=== PATIENT | male | born 1985 | race Caucasian/White ===

== ENCOUNTER 2016-07-30 16:05 | Inpatient (IN) | payer OTHER ==
[~2016-07-30] VITALS: Ht 180.3 cm; Wt 81.6 kg
[~2016-07-30 16:05] MED LIST: CLONIDINE HCL0.1 MG PO; CYCLOBENZAPRINE10 M1 PO; STROVITE ONE C1 EACH PO; TRAZODONE HCL100 M1 PO; VENLAFAXINE HC150 M1 PO; VICODIN 5-3001 EACH PO; XANAX1 M1 PO; ZOLPIDEM TART12.5 M1 PO
--- NOTE | 2016-07-30 16:09 | ED PSYCHIATRIC COMPLAINT ---
History of Present Illness General Chief Complaint: ETOH/Drug Related Complaint Stated Complaint: BIBA FOR OVERDOSE Source: patient, old records, EMS Exam Limitations: clinical condition Vital Signs & Intake/Output Vital Signs & Intake/Output Vital Signs Date Time Temp Pulse Resp B/P Pulse O2 O2 Flow FiO2 Ox Delivery Rate 07/30 2014 97.8 61 12 131/82 95 Room Air 07/30 1610 98.8 64 18 114/57 96 Room Air Allergies Coded Allergies: NO KNOWN ALLERGIES (04/03/13) Reconcile Medications Alprazolam (Xanax) 1 MG TABLET 1 TAB PO TID ANXIETY (Reported) Clonidine HCl 0.1 MG TABLET 1 TAB PO QPM ANXIETY (Reported) Cyclobenzaprine HCl 10 MG TABLET 1 TAB PO QPM MUSCLE SPASMS Hydrocodone/Acetaminophen (Vicodin 5-300 MG Tablet) 1 EACH TABLET 1 TAB PO BID PRN PAIN Mv,Min #10/FA/D3/Alip Acid/Lut (Strovite One Caplet) 1 EACH TABLET 1 TAB PO DAILY SUPPLEMENT (Reported) Trazodone HCl 100 MG TABLET 1-2 TAB PO QPM SLEEP (Reported) Venlafaxine HCl (Venlafaxine HCl ER) 150 MG TAB.ER.24 1 TAB PO DAILY MENTAL HEALTH (Reported) Zolpidem Tartrate (Zolpidem Tartrate ER) 12.5 MG TAB.MPHASE 1 TAB PO QPM PRN SLEEP (Reported) Triage Nurses Notes Reviewed? yes Onset: Abrupt Duration: minute(s): (FEW) Timing: single episode today Severity: severe Associated Symptoms: UNRESPONSIVE/LETHARGIC HPI: This is a 31-year-old male with history of long-standing polysubstance abuse who presents to the ER via EMS from home for chief complaint of being found unresponsive. According to his mother he has been doing well on methadone maintenance. This morning he went to the methadone clinic. When he came home they noticed that he was not behaving at baseline. He told them that he took his methadone as well as 3 mg of Xanax however not in an attempt to harm himself. They told him that they wanted to bring him to the hospital for evaluation which she finally agreed to. He stated that he wanted to go change in the bathroom and then he went to the bedroom and locked himself. The were not on the door without response. He finally opened up the door but was altered and leaning over a box on the ground. He was in and out of consciousness. EMS were called. Police arrived at the scene and were able to arouse him with a sternal rub and he was transported here. Patient upon arrival no known found to have right arm fresh IV track noriega. He admits to using 2 bags of IV heroin. In addition to patient being under a lot of stress secondary to his father being very sick in the ICU he was also arrested yesterday for possible interference of a drug arrest. [facility] was [facility] out from [facility] yesterday by his mother and is due to appear in court on the . (CATHERINE VARGHESE MD) Past History Travel History Traveled to [place] past 21 day No Medical History Any Pertinent Medical History? see below for history Psychiatric: substance abuse Tetanus Vaccine: 04/03/13 Surgical History Surgical History: non-contributory Psychosocial History What is your primary language Tuvaluan ETOH Use: occasional use Illicit Drug Use: heroin Family History Hx Contributory? No (CATHERINE VARGHESE MD) Review of Systems Review of Systems Constitutional: Denies: chills, fever. EENTM: Reports: no symptoms. Respiratory: Denies: cough, short of breath. Cardiovascular: Denies: chest pain, palpitations. GI: Denies: abdominal pain. Genitourinary: Reports: no symptoms. Musculoskeletal: Reports: no symptoms. Skin: Reports: no symptoms. Neurological/Psychological: Reports: anxiety. Hematologic/Endocrine: Denies: bruising, bleeding, polyuria, polydipsia. Immunologic/Allergic: Denies: splenectomy. All Other Systems: Reviewed and Negative (CATHERINE VARGHESE MD) Physical Exam Physical Exam General Appearance: well developed/nourished, lethargic, moderate distress Head: atraumatic Eyes: Bilateral: PERRL, EOMI. Ears, Nose, Throat: normal pharynx, normal ENT inspection, hearing grossly normal Neck: normal inspection, supple Respiratory: normal breath sounds Cardiovascular: regular rate/rhythm Gastrointestinal: soft, non-tender Extremities: normal range of motion Neurological/Psychiatric: AROUSABLE TO VERBAL STIMULI Appearance/Memory/Insight: disheveled, impaired insight Skin: intact, normal color, warm/dry SAD PERSONS Done? unobtained due to conditi (CATHERINE VARGHESE MD) Progress Differential Diagnosis: HEROIN OVERDOSE, METHADONE OVERDOSE, XANAX OVERDOSE, Plan of Care: Orders Procedure Date/time Status Admit to inpatient psych 07/30 2110 Active ED CRISIS PSYCH CONSULT 07/30 1701 Active URINE DRUGS OF ABUSE 07/30 1609 Complete Laboratory Tests 07/30/16 1621: Urine Opiates Screen > 4000.00 H, Methadone Screen > 735 H, Barbiturate Screen < 60, Ur Phencyclidine Scrn 9.90, Amphetamines Screen < 100, U Benzodiazepines Scrn > 800 H, Urine Cocaine Screen < 50, Urine Cannabis Screen 65.80 H Hand-Off Endorsed To: PRABHJOT CINTRON MD Endorsed Time: 1924 (CATHERINE VARGHESE MD) Departure Departure Disposition: STILL A PATIENT Condition: Stable Clinical Impression Primary Impression: Heroin overdose Referrals: BRANDEN MAYEN MD (PCP/Family) Departure Forms: Customer Survey General Discharge Information (CATHERINE VARGHESE MD) Psych Admission Note Psychiatric Admission: I have seen and evaluated YENNIFERCRISTIANADAM. I have also reviewed all the pertinent lab results and diagnostic results. AIMEEADAM Wolfe will be admitted to our inpatient Psychiatric unit for treatment and care. (PRABHJOT CINTRON MD) Critical Care Note Critical Care Note Critical Care Time: 30-74 min (CATHERINE VARGHESE MD)
--- NOTE | 2016-07-30 16:12 | NUR ---
31 YO MALE BIBA FROM HOME. PT WAS FOUND SEMI-RESPONSIVE BY FAMILY, ON EMS ARRIVAL THEY PERFORMED A STERNAL RUB AND PT BECAME MORE ALERT. PT ADMITS TO TAKING (3) 1MG TABS OF XANAX AND 90MG OF METHADONE TODAY. DENIES SI ATTEMPT. DENIES SI/HI AT THIS TIME. PT CALM AND COOPERATIVE. SECUIRTY AT BEDSIDE FOR WANDING. PT DENIES ALCOHOL USE. PT ALERT AND ORIENTED. REG RESP RATE AT THIS TIME,
--- NOTE | 2016-07-30 16:26 | NUR ---
PT SLEEPING AT THIS TIME, REG RESP RATE NOTED. RA SATS 94%-95% WILL CTM
--- NOTE | 2016-07-30 16:27 | NUR ---
URINE SAMPLE SENT TO LAB
--- NOTE | 2016-07-30 16:47 | NUR ---
NARCAN 0.4MG IV IN 50ML NS BAG PB STARTED
--- NOTE | 2016-07-30 17:00 | NUR ---
PT TO CONSULT ROOM TO SPEAK WITH CRISIS
--- NOTE | 2016-07-30 18:26 | NUR ---
PT RESTING ON STRETCHER, RA SATS 96% AT THIS TIME. WILL CTM
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
--- NOTE | 2016-07-30 20:15 | NUR ---
PT LYING ON STRETCHER IN [place] C, CALM AND COOPERATIVE. PT ON MONITOR. AWOKEN FOR VITALS.
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
--- NOTE | 2016-07-30 22:34 | NUR ---
PT MEDICATED WITH NEURONTIN 300MG
--- NOTE | 2016-07-30 22:43 | NUR ---
PT TRANSPORTED TO FLOOR
[2016-07-30 22:59] VITALS: BP 121/71
--- NOTE | 2016-07-30 23:19 | NUR ---
PT ALERT ORIENTED VSS COOPERATIVE WITH CARE INTERVIEW OBTAINED PT. ORIENTED TO SURROUNDINGS. PT DENIES A SUICIDE ATTEMPT. ABRASION NOTED TO RIGHT UPPER EYEBROW FROM A FALL. USED HERION AND MARIJUANA METHADONE LAST TODAY.
[2016-07-31] VITALS (13 sets, daily range): BP systolic 116–141; BP diastolic 56–91
[2016-07-31] MEDS ORDERED: STROVITE ONE C1 EACH PO (00:27)
[2016-07-31] MEDS ORDERED: AMBIEN5 M1 PO (00:29)
[2016-07-31] MEDS ORDERED: METHADONE HCL5 MG PO (07:38)
--- NOTE | 2016-07-31 10:33 | CPS MD/APRN INITIAL ASSE PSYCH ---
Psychiatric Admission Child Care Associate Teacher's Note Reviewed: Yes Patient Seen and Examined: Yes Identifying Information: 31 yo CSM, unemployed, living with his parents. Chief Complaint: Patient with extensive history of trauma, dignificant sbstance use disorder, untreated mental illness,with impulsive OD of methadone and heroin Reaction to Hospitalization: initially resistant, ultimately agreeable-voluntary admission History of Present Illness Onset of Illness: The patient was planning to start Dual Dx. IOP at the [facility]. Recent decline in his F.'s health(in ICU awaiting clearance for heart surgery- has aneurysm),being arrested for obstruction of justice(see crisis note for details) led to emotional upheaval and use of 2 bags of heroin which led to altered mental status and presentayion into the ER. Circumstances Leading to Admission: as noted Problem(s) Justifying Need for Admission: S/P OD Untreated mental illness Poor support and multiple severe stressors Past Psychiatric History Past Diagnosis(es)- if any: MDD Ply substance use disorder Past Precipitating Factors- if any: similar to present - Include inpatient and outpatient treatment Treatment History: inpatient mental health and substance abuse treatment Hospitalized twice in in 2008, multiple other treatments in different locations History of Suicide Attempts or Gestures as noted Substance Abuse History: as noted, also review initial crisis assessment Allergies: Coded Allergies: NO KNOWN ALLERGIES (04/03/13) Home Med List: xanax 2 mg po daily methadone 90 mg daily(verified) venlafaxine ER 150 mg daily ambien 10 mg at bedtime - Include any medical condition(s) that may - impact the patient's recovery/remission Past Medical History: denies Past History Medical History Neurological: NONE EENT: NONE Cardiovascular: NONE Respiratory: NONE Gastrointestinal: NONE Hepatic: NONE Renal: NONE Musculoskeletal: NONE Psychiatric: substance abuse Endocrine: NONE Blood Disorders: NONE Cancer(s): NONE QUALITY CONTROL LEAD/Reproductive: NONE History of MRSA: No History of VRE: No History of CDIFF: No Isolation History: Standard Influenza Vaccine: 02/28/16 Tetanus Vaccine: 04/03/13 Surgical History Surgical History: none Psychiatric Family/Social Hx Family History Psychiatric Illness: denies Substance Use: denies Suicides: denies Social History Living Situation: with parents Significant Relationships (family/friends): recent break-up with Education: HS graduate, some college 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 - #1 Recognizing dangerous situations. - #2 Coping Skills. - #3 Basic information about quitting. Status of Tobacco Cessation Counseling: #1, #2 AND #3 Completed Cessation Med Status: Pt Refused Cessation Meds Alcohol Screening - ETOH screen POS if BAL >=80 or Audit-C>= M4/F3 Audit-C Score from Diag Assess: 1 Alcohol Use Screening Results: Neg per Audit C &/or BAL - If ETOH counseling indicated - the following topics are required. - #1 Express concern about the patient's - drinking at unhealthy levels, include informing - of national norms for moderate drinking: - men <= 14 drinks/week, max 4 drinks/occasion - women <= 7 drinks/week, max 3 drinks/occasion - #2 Providing feedback, including linking alcohol to - negative physical effects (liver injury, hypertension) - negative emotional effects (relationship problems and - depression) - negative occupational consequences (reduced work - performance) - #3 Advising the patient to abstain from alcohol or - to drink below national norms for moderate drinking - (as listed above). Status of ETOH Use Counseling: N/A B/C NO ETOH Use Metabolic Screening - Screen if on a Neuroleptic Medication - Metabolic screening should include: - Blood Pressure, BMI, Glucose or Hgb A1c, & a - Lipid profile from within the past 365 days. Metabolic Screening () Not Applicable, patient not on a neuroleptic. OR () Patient on a neuroleptic(s) . Enter below results for Glucose or Hemoglobin A1C, and lipid panel if obtained during the last 365 days. BMI: 25.100 Blood Pressure: 134/64 Laboratory Results (If applicable): Exam and Plan Mental Status Examination Ambulation Status: without assistance Appearance: 31 yo CM laying in hospital bed, looking much younger than stated age, dishevveled, short cut spiky dark brown hair, in hospital issued paper scrubs Attitude towards examiner: irritable, superficially cooperative Psychomotor activity: retardation Behavior: frustrated, irritated,almost hostile Quality of speech: well articulated, goal directed, scarce and nova Affect: morose, frustrated,irritable Mood: depressed and anxious Suicidal Ideation: denies Homicidal Ideation: denies Hallucinations: denies Paranoid/Delusional Material: none elicited Difficulties with thought organization: none observed Insight: poor Judgment: poor Orientation: to place, time, person, situation Cognition: intact Memory Function: intact Estimate of intellectual functioning: average Assets/Strengths Patient Identified Assets/Strengths: "i know what I want" Impression/Plan Impression and Plan: MDD, Recurrent, Severe, s/p OD on methadone and heroin Inpatient stabilization of mood by monitoring and engaging in multimodal treatment in safe, strucured environment Appropriate after care Monitor for signs/ symptoms of benzodiazepine and opioid withdrawal - Include all active medical diagnosis that require tx DSM 5 Diagnosis(es): MDD< Recurrent, Severe Opioid Use diorder Benzodiazepine use disorder Stressors include relationship problems, f.'s precarious health situation, legal problems, unemployment - Initial Tx Plan for Active Psych & Medical Conditions Treatment Plan: as noted - Factors that would help patient function - in a less restrictive setting. Factors: Absence of SI, imroved mood, insight and judgement, after care set up
[2016-07-31] MEDS ORDERED: ALPRAZOLAM1 M2 PO (11:02)
--- NOTE | 2016-07-31 14:10 | NUR ---
PT HAS BEEN VISIBLE IN THE [facility] TODAY. HIS GOAL WAS TO WORK ON MOOD, PT HAS BEEN FEELING ANXIETY TODAY. HE HAS BEEN ATTENDING GROUPS TODAY AND HAVING ACTIVE PARTICIPATION IN THEM. IN THE [facility] HE HAS BEEN COOPERATIVE WITH STAFF, AND NOT SCORING ON HIS CIWA. PT DENIES HAVING THOUGHTS OF HURTING SELF WHEN ASKED.
--- NOTE | 2016-07-31 17:10 | History & Physical ---
General Information and HPI MD Statement: I have seen and personally examined ADAM YU and documented this H&P. 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 Patient claims that his cousin recently . He started the using methadone 2 months ago through [facility]. Couple of days prior to admission when of the friend stopped by at home and they used heroine. According to the psych note, mother reported that he was having some difficulty breathing. Therefore he was brought into the hospital. Patient himself claims that he's under a lot of stress these days. 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 He feels sorry that he slipped and used heroine while he was on methadone. He also takes Xanax prescribed by another provider. He currently denies any aches or pains and wants to get out of here. Allergies/Medications Allergies: Coded Allergies: NO KNOWN ALLERGIES (04/03/13) Home Med list Alprazolam 1 MG TABLET 2 MG PO DAILY ANXIETY (Reported) Clonidine HCl 0.1 MG TABLET 1 TAB PO QPM ANXIETY (Reported) Methadone HCl (Unknown Strength) TABLET (Unknown Dose) HERION USE (Reported) Mv,Min #10/FA/D3/Alip Acid/Lut (Strovite One Caplet) (Unknown Strength) TABLET (Unknown Dose) PO MOOD STABILITY (Reported) Trazodone HCl 100 MG TABLET 1-2 TAB PO QPM SLEEP (Reported) Venlafaxine HCl (Venlafaxine HCl ER) 150 MG TAB.ER.24 1 TAB PO DAILY MENTAL HEALTH (Reported) Zolpidem Tartrate (Ambien) (Unknown Strength) TABLET (Unknown Dose) PO INSOMNIA (Reported) Past History Travel History Traveled to [place] past 21 day No Medical History Neurological: NONE EENT: NONE Cardiovascular: NONE Respiratory: NONE Gastrointestinal: NONE Hepatic: NONE Renal: NONE Musculoskeletal: NONE Psychiatric: substance abuse Endocrine: NONE Blood Disorders: NONE Cancer(s): NONE 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 Home ETOH Use: occasional use Illicit Drug Use: heroin Review of Systems Review of Systems Constitutional: Reports: see HPI. EENTM: Reports: see HPI. Cardiovascular: Reports: see HPI. Respiratory: Reports: see HPI. GI: Reports: see HPI. Genitourinary: Reports: see HPI. Musculoskeletal: Reports: see HPI. Skin: Reports: see HPI. Neurological/Psychological: Reports: see HPI. Exam & Diagnostic Data Last 24 Hrs of Vital Signs/I&O Vital Signs Date Time Temp Pulse Resp B/P Pulse O2 O2 Flow FiO2 Ox Delivery Rate 07/31 1611 68 121/64 07/31 1602 68 121/64 07/31 1405 76 116/56 07/31 1218 86 119/70 07/31 1217 86 119/70 07/31 1029 73 134/64 04 0823 99.1 82 130/61 07/31 0815 99.1 82 130/61 /04 0614 74 16 128/68 07/30 2259 97.7 57 121/71 07/30 2200 98.7 58 16 122/68 98 Room Air 07/30 2014 97.8 61 12 131/82 95 Room Air Intake & Output 07/31 1600 07/31 0800 07/31 0000 Intake Total Output Total Balance Patient 180 lb Weight Physical Exam General Appearance Alert, Oriented X3, Cooperative Skin No Rashes HEENT PERRLA Neck Supple Cardiovascular Regular Rate, Normal S1, Normal S2 Lungs Clear to Auscultation Abdomen Normal Bowel Sounds, Soft, No Tenderness Neurological Cranial Nerves II through XII: intact Extremities No Edema Last 24 Hrs of Labs/Michael: Laboratory Tests 07/30 07/30 07/30 2350 2204 1621 Chemistry TSH (0.270 - 4.200 uIU/mL) 1.180 Cancelled Toxicology Urine Opiates Screen (>2000 NG/ML) > 4000.00 H Methadone Screen (>300 NG/ML) > 735 H Barbiturate Screen (>200 NG/ML) < 60 Ur Phencyclidine Scrn (>25 NG/ML) 9.90 Amphetamines Screen (>1000 NG/ML) < 100 U Benzodiazepines Scrn (>200 NG/ML) > 800 H Urine Cocaine Screen (>300 NG/ML) < 50 Urine Cannabis Screen (>50 NG/ML) 65.80 H Laboratory Tests 07/30/16 2350: TSH 1.180 07/30/16 2204: TSH Cancelled Assessment/Plan Assessment: 31-year-old male who is admitted with the substance abuse and possible heroine overdose. I believe the management for substance abuse and heroin overdose up to psychiatry. Patient also takes Xanax on chronic basis, this should be continued. Currently he denies any aches or pains. He also has history of insomnia, management as per psychiatrist. As Ranked By This Provider Problem List: 1. Heroin overdose 2. Substance abuse Miscellaneous Miscellaneous Documentation Attending Case Discussed With: Pia Verma MD Primary Care Physician: BRANDEN MAYEN MD Patient sees these Specialists psych Level of Patient Care: Cam
--- NOTE | 2016-07-31 20:56 | NUR ---
PT IS STABLE WITH CONSTRICTED AFFECT. VISIBLE WITHIN THE COMMUNITY MINIMALLY. SPENT MOST OF EVENING SHIFT IN HIS ROOM SLEEPING. PT REPORTED HIGH LEVELS OF ANXIETY DUE TO NOT BEING ABLE TO GET HIS XANAC THAT HE HAS BEEN ON "FOR YEARS". PT ENCOURAGED TO SPEAK WITH THE WEEKEND PSYCHIATRIST TOMORROW WHEN HE MEETS WITH THEM. PT NOT SCORING ON CIWA. VS ARE STABLE AND DENIES ANY SI/HI TO THIS MHW.
[2016-08-01] VITALS (8 sets, daily range): BP systolic 127–145; BP diastolic 71–89
--- NOTE | 2016-08-01 06:20 | NUR ---
PT ANXIOUS BEFORE BED. PT RECEIVED HS MEDS AND THEN APPEARED TO SLEEP WELL.
--- NOTE | 2016-08-01 14:05 | NUR ---
PT VISIBLE IN THE [facility] TODAY. HIS GOAL WAS TO MAKE PLANS FOR DISCHARGE. PT WANTS TO BE DISCHARGED SO HE CAN SPEND MORE TIME WITH HIS FATHER WHO IS SICK. PT HAS BEEN ATTENDING GROUPS AND INTERACTING WITH HIS PEERS. PT HAS BEEN COMPLIANT WITH THE RULES OF THE UNIT. PT DENIES HAVING THOUGHTS TO HURT HIMSELF WHEN ASKED.
--- NOTE | 2016-08-01 18:45 | CP SOUTH PROGRESS NOTE PSYCH ---
Psych (Inpt) Progress Note Progress Note The patient was seen for follow-up for major depressive disorder and status post overdose. He slept well as per nursing staff. Appetite is good, improved as compared to yesterday when he was refusing to eat because he said "I don't feel like eating now". He was out of his room and around on the unit, interacting appropriately with peers and staff members On individually encounter the patient appears in much better spirits, he is much better groomed, pleasant and cooperative. He is apologetic" I am sorry for what ever I might have said to you yesterday, I was still upset and not in my entire mind". The patient denies suicidal/homicidal ideation, auditory/visual hallucinations, or side effects from the medications. The patient understands the risks/benefits/side effects of the medication and is agreeable to continue taking them. We will continue present management, observation, symptom monitoring, and discharge planning. The patient will be followed up daily by the unit psychiatrist.
--- NOTE | 2016-08-01 21:25 | NUR ---
PATIENT ALERT AND ORIENTED X3, CALM AND COOPERATIVE WITH STAFF; HE ATTENDED GROUPS TODAY WITH GOOD PARTICIPATION; HE DENIES CURRENT SUICIDAL IDEATION AND INTENT; HE VERBALIZED SATISFACTION WITH HIS DISCHARGE PLANNING AND ATTENDING IOP; VITAL SIGNS WNL.
--- NOTE | 2016-08-02 05:53 | NUR ---
PATIENT WAS UP TO BATHROOM TWICE, OTHERWISE APPEARED TO SLEEP.
[2016-08-02 07:48] VITALS: BP 136/81
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
[2016-08-02 12:18] VITALS: BP 138/77
[2016-08-02 12:20] VITALS: BP 138/77
--- NOTE | 2016-08-02 13:41 | NUR ---
PT IS COMPLIANT AND COOPERATIVE. MOOD IS STABLE WITH A FULL RANGE OF AFFECT. PT DENIES SI AT THIS TIME, NO COMPLAINTS OFFERED. NO S/S OF DETOX NOTED OR REPORTED. PT IS PRESENT IN THE COMMUNITY AND INTERACTING WELL WITH PEERS AND STAFF. PT IS ATTENDING GROUPS. VITALS ARE STABLE, APPETITE IS GOOD.
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
--- NOTE | 2016-08-02 16:01 | SOCIAL WORKER PROG NOTE PSYCH ---
Social Work Progress Note Progress Note Opal Zhao APRN and I met with Иван briefly to get a sense of how he was doing and what led up to the hospitalization. Иван reported that a week prior to [place] his cousin OD'd from heroin. He lost his job at that time and moved back home. He reported that the police wanted information on the dealer's name and number who sold drugs to his cousin. He stated he didn't know, and then this past Tuesday he was served with a warrant for an arrest due to interferring with an officer and selling illegal substances. Иван bonded out and will have court. He is working with a ammunition supervisor. Иван has been on methadone , which he goes to [facility] for in [place]. He is interested in doing the IOP there. He is anxious right now, because his Father is in the ICU at [facility]. Dad suffered a blood clot in the brain and in the heart. Иван is advocating to leave to see his Dad. He reports no SI and doesn't feel that he needs to be inpatient right now. Opal and I both told him that we understood the circumstances with his Dad and would work with him. Encouraged him to call his Mom to see if she may be available for a family meeting. A short time later Иван came and told me that his Mom will come in for 4pm today to meet. Around 4:30 Иван's Mom came in to meet briefly. She wants him to discharge from the hospital so he can see his Father today. Father is going for additional surgeries today. Mom did not have any concern about his leaving. Discussed a safety plan of him talking to his Mom or returning to ER if he should need additional support. Discussed AA and NA as a resource and Al-Anon for Mom. Иван will follow up at [facility] for IOP. He was informed that our IOP at [place] does not accept patients on Methadone. Иван stated he may eventually come off the methadone. Opal also educated him about taking methadone and Xanax and that our recommendation is that he get off Xanas over time as well. Patient will discharge today.
[2016-08-02] MEDS ORDERED: GABAPENTIN300 M2 PO (16:40)
--- NOTE | 2016-08-02 16:42 | DISCHARGE SUMMARY REPORT-PSYCH ---
Visit Information Visit Dates/Diagnosis' Admission Date: 07/30/16 Discharge Date: 08/02/16 Reason for Admission: Overdose on methadone and heroin without suicidal intent. Psy Discharge Primary Diag: MDD, recurrent, severe Psy Discharge Secondary Diag: Opioid use disorder, severe; Benzodiazepine use disorder Hospital Course Significant Lab Findings: Lab Methadone Screen > 735 NG/ML H 07/30/16 1621 U Benzodiazepines Scrn > 800 NG/ML H 07/30/16 1621 Urine Cannabis Screen 65.80 NG/ML H 07/30/16 1621 Urine Opiates Screen > 4000.00 NG/ML H 07/30/16 1621 08/02/16 EKG: Sinus rhythm with rate of 74. Non-specific ST-T wave abnormalities. CO: 172; QRSD: 96; QT: 500; QTc: 444; P: 42; QRS: 71; T: 6. Normal EKG confirmed by intensive care medicine specialist Dr. Hernesto Walden. Course Complications: None. Consultations: The patient was seen for admission history and physical by Dr. Pia Verma. Please see note for additional information. Allergies: Coded Allergies: NO KNOWN ALLERGIES (04/03/13) Hospital Course/TX Response: The patient was monitored on the unit for safety, suicidal ideation, mood and opiate and benzodiazepine withdrawal. He participated in multimodal treatments on the unit. His home medications of Effexor XR 150mg daily for depression, Methadone 90mg for opiate treatment, Clonidine 0.1mg at bedtime for anxiety, and Trazodone 100mg for insomnia were continued. Home medication of Ambien 10mg at bedtime for insomnia was discontinued given history of substance abuse, and home Xanax 2mg daily was decreased to 1.5mg at bedtime. Gabapentin 300mg three times daily was started for anxiety. The patient tolerated medications well and denied untoward medication effects. During the hospital course, the patient's mood and affect improved. The patient consistently denied suicidal ideation. An urgent family meeting was held with the patient, his mother, Annabella Pinzon LCSW, and this scenario writer. The patient's mother requested the patient be immediately discharged in order for him to visit his father who was undergoing emergency surgery at another hospital. The patient's mother was in favor of the patient's discharge to home with her. The patient's mother denied any concerns regarding the patient's level of safety and reported that he would remain in her care, at her home. The patient's mother assured that she would see that the patient followed up with [facility] tomorrow for methadone maintenance and to arrange IOP care. The patient reported having prescription narcan at home and reported that he would show his mother where it is located given his recent/past history of opiate use. The patient's mother who is an RN verbalized that she understands how to administer narcan. The patient refused an additional prescription of narcan. The patient and his mother verbalized that the patient had adequate supplies of all prescribed medications at home. The patient was advised to discontinue Ambien at bedtime as he was not receiving it during his hospital course. He was also advised to continue decreased Xanax dose of 1.5mg nightly. He was advised to take all medications as prescribed and to follow-up with after care referrals. The patient, his mother, Annabella PinzonRAMONA, and this scenario writer reviewed safety plan for patient to call 911/go to nearest emergency department in the event of an emergency. The patient and his mother verbalized understanding of all instructions. On the date of discharge, , the patient presented alert and oriented to person, place, time and situation. Eye contact was appropriate. Speech was normal in rate, tone and volume. He had no complaints. He denied acute symptoms of anxiety and depression. He denied feeling hopeless, helpless, worthless and guilty. He reported his sleep and appetite were good. He denied active and passive suicidal ideation, plans and intent. He denied homicidal ideation, auditory and visual hallucinations. He stated and also believed he will not harm himself or others. He identified protective factors of "my parents." There was no evidence of paranoia or andra delusions. Thought process was organized and goal-directed. Thought content was appropriate. Cognition was grossly intact. He reported tolerating all medications well and denied untoward medication effects. He reported feeling safe and ready for discharge. The patient's mother was in favor of the patient's discharge and did not express any safety concerns. Discharge HBIPS - Tobacco Use Treatment Offered Post DC Medications Offered: Refused Tob Medication Tx Post DC Tobacco Treatment Plan: Michael Tobacco Tx Pgm Program Appt Date: 08/04/16 Program Appt Time: 1600 - EtOH/Drug Use D/O Treatment Offered Post DC Medications Offered: Ref Med EtOH/Drug Use D/O Post DC EtOH/SubAbuse TX Plan: Other SubAbuse/Dual Pgm Program Appt Date: 08/03/16 Metabolic Screening - Screen if on a Neuroleptic Medication - Metabolic screening should include: - Blood Pressure, BMI, Glucose or Hgb A1c, & a - Lipid profile from within the past 365 days. Metabolic Screening ([X]) Not Applicable, patient not on a neuroleptic. OR () Patient on a neuroleptic(s) . Enter below results for Glucose or Hemoglobin A1C, and lipid panel if obtained during the last 365 days. BMI: 25.100 Blood Pressure: 138/77 Laboratory Results (If applicable): n/a Discharge Instructions General Discharge Information Discharge Medications: Discharge Medications- (Dose, route, freq, indication): START taking these NEW Home Medications: Gabapentin Dose: ORAL, THREE TIMES DAILY Qty: 42 Printed (Gabapentin) 300 MG 300 Milligram for anxiety Refills: 0 CAPSULE Take 1 capsule by mouth three times daily. Last Taken:08/02/16 Time:4pm CONTINUE taking these Home Medications: Venlafaxine HCl Dose: ORAL, DAILY for MENTAL (Venlafaxine HCl ER) 150 1 Tablet HEALTH MG TAB.ER.24 Last Taken:08/02/16 Time:8am Trazodone HCl (Trazodone Dose: ORAL, Every night for HCl) 100 MG TABLET 1 Tablet SLEEP Last Taken:08/01/16 Time:10pm Clonidine HCl (Clonidine Dose: ORAL, Every night for HCl) 0.1 MG TABLET 1 Tablet ANXIETY Last Taken:08/01/16 Time:10pm Mv,Min #10/FA/D3/Alip Dose: ORAL, for MOOD Acid/Lut (Strovite One Unknown Dose STABILITY Caplet) (Unknown Strength) TABLET Methadone HCl (Methadone Dose: ORAL, DAILY for opiate HCl) 5 MG TABLET 90 Milligram treatment Last Taken:08/02/16 Time:8am Alprazolam (Alprazolam) Dose: ORAL, DAILY for ANXIETY 1 MG TABLET 1.5 Milligram Last Taken:08/01/16 Time:10pm STOP taking these DISCONTINUED Home Medications: Zolpidem Tartrate (Ambien) Dose: ORAL, for INSOMNIA (Unknown Strength) TABLET Unknown Dose Reason Stopped: Per Doctor Decision Multiple Neuroleptics: ([X]) Not Applicable OR Document below three failed attempts at monotherapy, or a plan to taper to monotherapy, or augmentation of Clozapine. () Patient's Diet: Regular. Patient's Activity: No restrictions. DC Disposition: The patient to return to home and mother. Recommendations: The patient was advised to please take medications as prescribed. He was advised to abstain from all substances. He was advised to attend daily AA/NA meetings and obtain a sponsor for support in sobriety. He was advised to follow up at [facility] to resume methadone maintenance and start IOP. He was advised that in the event of an emergency to call 911/go to nearest emergency department. The patient refused a prescription for narcan secondary to having it at home. The patient reported he would show his mother where it is located at home. The patient's mother who is a registered nurse verbalized understanding of the administration of narcan. The patient and his mother verbalized understanding of all instructions. Referred To: Service date: 08/03/[address] [place]. [place], [place] ([phone] *Patient will go to IOP through [facility] and resume methadone maintenance therapy on the morning of 08/03/16. Service Date: 08/04/16 [facility] [address] [place] [address] [place]. [place], [place] [phone] *Appointment for smoking cessation group on 08/04/16 at 4PM. Copies To: [facility]
--- NOTE | 2016-08-02 16:47 | NUR ---
will be discharged to [facility]. Follow up at [facility] in [place]. Mood is stable, euthymic affect some anxiety. Denies thoughtds of self harm when asked. Given education on suicide prevention and narcotic abuse.
== END 2016-08-02 17:09 | DRG 751 ==
LOC: ENRESERVDT → ENRESERVTM → ERH 16:05 → CP SOUTH 21:10 → ERHI 21:10 → EDBEDREQ 21:23 → CP SOUTH 22:44
PROVIDERS: ADMIT Psychiatry & Neurology Psychiatry
DX: F33.2 Major depressive disorder, recurrent severe without psychotic features (principal); F11.20 Opioid dependence, uncomplicated; F13.90 Sedative, hypnotic, or anxiolytic use, unspecified, uncomplicated
CPT/HCPCS: 36415; 80307; 93005; 93010; 96374; 99291; J2310